=== PATIENT | male | born 1990 | race Hispanic/Latino ===

== ENCOUNTER 2017-10-29 19:26 | Inpatient (IN) | payer OTHER ==
[2017-10-29] MEDS ORDERED: ATIVAN ONE (20:05)
[2017-10-29] MEDS ORDERED: KEPPRA 1,000 MG/NS 0.75% 100ML 1,000 MG/100 ML BAG IV ONE (20:17)
[2017-10-29] MEDS ORDERED: NACL 0.9% 1000 ML 1,000 ML IV ONE (20:17)
--- NOTE | 2017-10-29 20:19 | Emergency Department Report ---
HPI - General Chief Complaint: Seizure Time Seen by Provider: 10/29/17 20:10 - HPI HPI: 27-year-old male presents to the emergency department through triage, from home, brought in by his significant other and his mother with complaint of having 3 seizures today. The third seizure was in the waiting room and was witnessed by ED staff. Allegedly the patient has a seizure history since he was 16 years old. He takes Keppra and allegedly is compliant with his medication. In between one of his seizures today, the patient supposedly admitted to his significant other that he had taken a pill of Suboxone yesterday for an unknown reason. They say that he has no history of abusing illicit drugs and he has not been drinking heavily. He goes to a clinic where he gets his Keppra but otherwise does not have good follow-up with a primary care physician. Recent travel or sick contacts at home. The patient is currently combative, postictal, and a poor historian. ED Past Medical Hx - Past Medical History Hx Seizures: Yes Hx Psychiatric Treatment: Yes (anxiety) Additional medical history: mitral valve prolapse, anxiety, heart murmur, depression, - Surgical History Past Surgical History?: No - Social History Smoking Status: Current Every Day Smoker Substance Use Type: None - Medications Home Medications: Home Medications Medication Instructions Recorded Confirmed Last Taken Type levETIRAcetam [Keppra TAB] 500 mg PO BID #60 tablet 09/07/13 Unknown Rx Naproxen [Naprosyn] 500 mg PO BID #30 tablet 11/28/13 Unknown Rx traMADol [Ultram 50 MG tab] 50 mg PO Q6HR PRN #20 tablet 11/28/13 Unknown Rx ED Review of Systems ROS: Stated complaint: SEIZURE Other details as noted in HPI Comment: Unobtainable due to pts medical conditions Physical Exam - Physical Exam Vital Signs: Vital Signs 10/29/17 19:42 Temperature 98.3 F Pulse Rate 107 H Respiratory 16 Rate Blood Pressure 123/60 O2 Sat by Pulse 96 Oximetry Physical Exam: GENERAL: The patient is well-developed well-nourished. HENT: Normocephalic. Atraumatic. Patient has moist mucous membranes. EYES: Extraocular motions are intact. Pupils equal reactive to light bilaterally. NECK: Supple. Trachea is midline. CHEST/LUNGS: Clear to auscultation. There is no respiratory distress noted. HEART/CARDIOVASCULAR: Regular. There is mild tachycardia. There is no murmur. ABDOMEN: Abdomen is soft, nontender. Patient has normal bowel sounds. There is no abdominal distention. SKIN: Skin is warm and dry. NEURO: Patient is awake but non-cooperative. He is most likely postictal and is combative and agitated. MUSCULOSKELETAL: There is no tenderness or deformity. There is no limitation range of motion. There is no evidence of acute injury. ED Course Vital Signs 10/29/17 19:42 Temperature 98.3 F Pulse Rate 107 H Respiratory 16 Rate Blood Pressure 123/60 O2 Sat by Pulse 96 Oximetry - Reevaluation(s) Reevaluation #1: The patient presented into the emergency department from the waiting room postictal, combative confused. He was given 2 mg of Ativan in order to treat the seizure as well as help with his combative behavior. This did not appear to help enough as the patient continued to be combative, took a swing at one of the ED staff, is cursing at everyone, including family. He was then given 10 mg of Geodon and physical restraints. Once the patient is more calm, we will remove the physical restraints. We will continue to monitor the patient. 10/29/17 21:14 ED Medical Decision Making - Lab Data Result diagrams: 10/29/17 20:31 10/29/17 20:31 - EKG Data -: EKG Interpreted by Ct EKG shows normal: sinus rhythm, axis, intervals, QRS complexes, ST-T waves Rate: tachycardia (102 bpm) - EKG Data When compared to previous EKG there are: previous EKG unavailable Interpretation: normal EKG (with very mild tachycardia at 102 bpm) - Radiology Data Radiology results: report reviewed PROCEDURE: CT HEAD/BRAIN WO CON TECHNIQUE: Computerized tomography of the head was performed without contrast material. HISTORY: Seizure COMPARISON: No prior studies are available for comparison. FINDINGS: Skull and scalp: Normal. Paranasal sinuses: Normal. Ventricles and subarachnoid spaces: Normal. Cerebrum: No evidence of hemorrhage, acute infarction or mass . Cerebellum and brainstem: No evidence of hemorrhage, acute infarction or mass. Vasculature: Normal. Comments: None. IMPRESSION: Normal Examination Transcribed By: CO Dictated By: DEANNE PERRIN MD Electronically Authenticated By: DEANNE PERRIN MD Signed Date/Time: 10/29/17 4879 - Medical Decision Making Patient had 2 seizures prior to arrival and then one witnessed in the waiting room. He presented into the main emergency department post ictal and combative. He was given 2 mg of Ativan to try and treat the seizure as well as help with some of the agitation without any relief. The patient began cursing at everyone and swinging at ED staff. At this point he was given some Geodon and required some physical restraints but eventually the patient began sleeping and resting comfortably. At this point the physical restraints were removed. EKG did not show any signs of ST elevation VA, ischemia or dysrhythmia. CT of the head did not show any bleed, shift, mass or any acute process. Labs are mostly unremarkable and did not show any etiology of his recurrent seizures. Since the patient has had some breakthrough seizures and allegedly he is compliant with his Keppra, he will be admitted to the hospital for further evaluation and treatment has been accepted for admission by the hospitalist, Dr. Estrada. - Differential Diagnosis Epilepsy, Substance abuse, Brain Bleed Critical Care Time: No Critical care attestation.: If time is entered above; I have spent that time in minutes in the direct care of this critically ill patient, excluding procedure time. ED Disposition Clinical Impression: Recurrent seizures Altered mental status Qualifiers: Altered mental status type: unspecified Qualified Code(s): R41.82 - Altered mental status, unspecified Disposition: OP ADMIT IP TO THIS HOSP Is pt being admited?: Yes Condition: Fair Referrals: LIBRA VALLECILLO MD [Primary Care Provider] - 3-5 Days Time of Disposition: 00:19
[2017-10-29] MEDS ORDERED: GEODON IM PRN (20:28)
[2017-10-29] MEDS ORDERED: GEODON IM ONE (20:29)
[2017-10-29 20:46] LABS: Basophils % (Auto) 0.4 % (0.0-1.8); Eosinophils # (Auto) 0.1 K/mm3 (0.0-0.4); Eosinophils % (Auto) 1.1 % (0.0-4.3); Hematocrit 50.9 % (35.5-45.6); Hemoglobin 17.6 gm/dl (11.8-15.2); Lymphocytes # (Auto) 1.5 K/mm3 (1.2-5.4); Lymphocytes % (Auto) 13.8 % (13.4-35.0); Mean Corpuscular HGB Conc 35 % (32-34); Mean Corpuscular Hemoglobin 31 pg (28-32); Mean Corpuscular Volume 89 fl (84-94); Monocytes # (Auto) 0.9 K/mm3 (0.0-0.8); Monocytes % (Auto) 7.9 % (0.0-7.3); Platelet Count 234 K/mm3 (140-440); Red Cell Distribution Width 12.9 % (13.2-15.2)
[2017-10-29 21:03] LABS: Alanine Aminotransferase 14 units/L (7-56); Albumin 4.6 g/dL (3.9-5)
[2017-10-29 21:40] LABS: BUN/Creatinine Ratio 12; Blood Urea Nitrogen 12 mg/dL (9-20); Calcium 8.7 mg/dL (8.4-10.2); Hemolysis Index 31
--- NOTE | 2017-10-29 22:11 | Cat Scan Report ---
FINAL REPORT PROCEDURE: CT HEAD/BRAIN WO CON TECHNIQUE: Computerized tomography of the head was performed without contrast material. HISTORY: Seizure COMPARISON: No prior studies are available for comparison. FINDINGS: Skull and scalp: Normal. Paranasal sinuses: Normal. Ventricles and subarachnoid spaces: Normal. Cerebrum: No evidence of hemorrhage, acute infarction or mass . Cerebellum and brainstem: No evidence of hemorrhage, acute infarction or mass. Vasculature: Normal. Comments: None. IMPRESSION: Normal Examination
[2017-10-29 22:55] LABS: Bilirubin,Urine NEG (Negative); Blood,Urine SM (Negative); Color,Urine Yellow (Yellow); Mucus,Urine FEW /HPF; Urobilinogen,Urine < 2.0 mg/dL (<2.0)
[2017-10-29 23:02] LABS: RBC,Urine < 1.0 /HPF (0.0-6.0)
[2017-10-29 23:05] LABS: Amphetamine Screen,Urine PRESUMPTIVE NEGATIVE; Cocaine Screen,Urine PRESUMPTIVE NEGATIVE; Methadone Screen,Urine PRESUMPTIVE NEGATIVE; Opiate Screen,Urine PRESUMPTIVE NEGATIVE
[2017-10-29 23:27] LABS: Benzodiazepines Screen,Urine PRESUMPTIVE POSITIVE; Cannabinoid Screen,Urine PRESUMPTIVE POSITIVE
[2017-10-29] MEDS ORDERED: ATIVAN IV PRN (23:40)
[2017-10-29] MEDS ORDERED: TYLENOL PO PRN (23:40)
[2017-10-29] MEDS ORDERED: ZOFRAN IV PRN (23:40)
--- NOTE | 2017-10-29 23:44 | History and Physical Report ---
History of Present Illness Date of examination: 10/29/17 History of present illness: 27-year-old man history of seizure, anxiety, depression, mitral valve prolapse and a seizure around 1 PM while he was at a restaurant. EMS was called and the patient declined to come to the hospital. Patient went home and had another seizure, generalized tonic-clonic. He came to the emergency room for evaluation and in the waiting area, he had another seizure. Family stated that he is compliant with medication. Review of systems unobtainable, patient is postictal PAST MEDICAL HISTORY: Seizure, anxiety, depression, mitral valve prolapse PAST SURGICAL HISTORY: None SOCIAL HISTORY: Social alcohol, tobacco, no drugs FAMILY HISTORY: Hypertension Medications and Allergies Allergies Allergy/AdvReac Type Severity Reaction Status Date / Time No Known Allergies Allergy Verified 10/29/17 19:42 Home Medications Medication Instructions Recorded Confirmed Last Taken Type levETIRAcetam [Keppra TAB] 500 mg PO BID #60 tablet 09/07/13 Unknown Rx Naproxen [Naprosyn] 500 mg PO BID #30 tablet 11/28/13 Unknown Rx traMADol [Ultram 50 MG tab] 50 mg PO Q6HR PRN #20 tablet 11/28/13 Unknown Rx Active Meds: Active Medications Ziprasidone (Geodon) 10 mg IM Q2H PRN PRN Reason: Agitation Exam - Physical Exam Narrative exam: Gen. appearance: Patient lying in bed, no apparent distress HEENT: Normocephalic, atraumatic, pupils equally round and reactive to light, unable to do extraocular movement , and no sclericterus,. No JVD or thyromegaly or nodule,neck supple, no carotid bruit ,mucous membranes moist, no exudate or erythema Heart: S1, S2, regular rate and rhythm Lungs: Clear to auscultation bilaterally, breathing comfortable Abdomen: Positive bowel sounds, nontender, nondistended, no organomegaly Extremity: No edema, cyanosis, clubbing Skin: No rash, nodules, warm, dry Neuro: Post ictal - Constitutional Vitals: Temp Pulse Resp BP Pulse Ox 98.3 F 107 H 16 123/60 96 10/29/17 19:42 10/29/17 19:42 10/29/17 19:42 10/29/17 19:42 10/29/17 19:42 Results - Labs CBC & Chem 7: 10/29/17 20:31 10/29/17 20:31 Labs: Abnormal lab results 10/29/17 10/29/17 10/29/17 Range/Units 20:31 20:31 20:31 RBC 5.70 H (3.65-5.03) M/mm3 Hgb 17.6 H (11.8-15.2) gm/dl Hct 50.9 H (35.5-45.6) % MCHC 35 H (32-34) % RDW 12.9 L (13.2-15.2) % Bartholomew % (Auto) 7.9 H (0.0-7.3) % Bartholomew # 0.9 H (0.0-0.8) K/mm3 Seg Neutrophils % 76.8 H (40.0-70.0) % Seg Neutrophils # 8.4 H (1.8-7.7) K/mm3 Sodium 136 L (137-145) mmol/L Chloride 94.4 L (98-107) mmol/L Carbon Dioxide 19 L (22-30) mmol/L Glucose 115 H (75-100) mg/dL Salicylates < 0.3 L (2.8-20.0) mg/dL Acetaminophen (10.0-30.0) ug/mL 10/29/17 Range/Units 20:31 RBC (3.65-5.03) M/mm3 Hgb (11.8-15.2) gm/dl Hct (35.5-45.6) % MCHC (32-34) % RDW (13.2-15.2) % Bartholomew % (Auto) (0.0-7.3) % Bartholomew # (0.0-0.8) K/mm3 Seg Neutrophils % (40.0-70.0) % Seg Neutrophils # (1.8-7.7) K/mm3 Sodium (137-145) mmol/L Chloride (98-107) mmol/L Carbon Dioxide (22-30) mmol/L Glucose (75-100) mg/dL Salicylates (2.8-20.0) mg/dL Acetaminophen < 5.0 L (10.0-30.0) ug/mL - Imaging and Cardiology EKG: image reviewed CT Scan - head: report reviewed Assessment and Plan Assessment Status epilepticus Depression Anxiety Mitral valve prolapse Plan Admit to medicine Status post loading dose of Keppra IV Ativan as needed, consult neurology DVT prophylaxis
[2017-10-30] MEDS ORDERED: NACL 0.9% 1000 ML 1,000 ML ONE (01:18)
[2017-10-30] MEDS: NACL 0.9% 1000 ML 1,000 ML IV SCH ×3 (01:24→17:30)
[2017-10-30 06:42] LABS: Basophils % (Auto) 0.4 % (0.0-1.8); Eosinophils # (Auto) 0.1 K/mm3 (0.0-0.4); Eosinophils % (Auto) 1.4 % (0.0-4.3); Hematocrit 45.7 % (35.5-45.6); Hemoglobin 15.5 gm/dl (11.8-15.2); Lymphocytes # (Auto) 2.4 K/mm3 (1.2-5.4); Mean Corpuscular HGB Conc 34 % (32-34); Mean Corpuscular Hemoglobin 30 pg (28-32); Mean Corpuscular Volume 90 fl (84-94); Monocytes % (Auto) 11.7 % (0.0-7.3); Platelet Count 188 K/mm3 (140-440); Red Blood Count 5.08 M/mm3 (3.65-5.03); Red Cell Distribution Width 12.8 % (13.2-15.2)
[2017-10-30 06:58] LABS: BUN/Creatinine Ratio 14; Blood Urea Nitrogen 11 mg/dL (9-20); Calcium 7.5 mg/dL (8.4-10.2); Hemolysis Index 13
--- NOTE | 2017-10-30 09:41 | Progress Note ---
Assessment and Plan Assessment and plan: 27-year-old man history of seizure since age 16, anxiety, depression, mitral valve prolapse and a seizure around 1 PM while he was at a restaurant. EMS was called and the patient declined to come to the hospital. Patient went home and had another seizure, generalized tonic-clonic. He came to the emergency room for evaluation and in the waiting area, he had another seizure and was witnessed by staff. Family stated that he is compliant with medication. Review of systems unobtainable on admission as patient was postictal. Per the ER Physician Documentation " In between one of his seizures today, the patient supposedly admitted to his significant other that he had taken a pill of Suboxone yesterday for an unknown reason. They say that he has no history of abusing illicit drugs and he has not been drinking heavily. He goes to a clinic where he gets his Keppra but otherwise does not have good follow-up with a primary care physician." Status epilepticus complex Partial Seizures Depression Anxiety SIRS POA Possible Substance abuse: THC, BENZO and per documentation possible Suboxone Mitral valve prolapse Plan Resume home medications await Neurology consult. Current medication reconciliation shows Keppra, Naproxyn and tramadol. The later known to lower seizure threshold, will see if patient was actually taking Status post loading dose of Keppra Extensive counselling greater than 15 mins about compliance. EEG Will discuss prior work up done outpatient and if any reason was found for the seizures No driving on discharge according to [place] laws DVT prophylaxis History Interval history: Patient seen and examined in no acute distress. He is more awake and oriented Hospitalist Physical - Physical exam Narrative exam: Gen. appearance: Patient lying in bed, no apparent distress HEENT: Normocephalic, atraumatic, pupils equally round and reactive to light, unable to do extraocular movement , and no sclericterus,. No JVD or thyromegaly or nodule,neck supple, no carotid bruit ,mucous membranes moist, no exudate or erythema Heart: S1, S2, regular rate and rhythm Lungs: Clear to auscultation bilaterally, breathing comfortable Abdomen: Positive bowel sounds, nontender, nondistended, no organomegaly Extremity: No edema, cyanosis, clubbing Skin: No rash, nodules, warm, dry. Multiple skin tattoe Neuro: alert awake, oriented x3. speech is normal, gait not tested - Constitutional Vitals: Temp Pulse Resp BP Pulse Ox 98.4 F 80 18 127/68 96 10/30/17 07:44 10/30/17 07:44 10/30/17 07:44 10/30/17 07:44 10/30/17 07:44 Results - Labs CBC & Chem 7: 10/30/17 06:12 10/30/17 06:12 Labs: Laboratory Last Values WBC 8.5 K/mm3 (4.5-11.0) 10/30/17 06:12 RBC 5.08 M/mm3 (3.65-5.03) H 10/30/17 06:12 Hgb 15.5 gm/dl (11.8-15.2) H 10/30/17 06:12 Hct 45.7 % (35.5-45.6) H 10/30/17 06:12 MCV 90 fl (84-94) 10/30/17 06:12 MCH 30 pg (28-32) 10/30/17 06:12 MCHC 34 % (32-34) 10/30/17 06:12 RDW 12.8 % (13.2-15.2) L 10/30/17 06:12 Plt Count 188 K/mm3 (140-440) 10/30/17 06:12 Lymph % (Auto) 28.0 % (13.4-35.0) 10/30/17 06:12 [place] % (Auto) 11.7 % (0.0-7.3) H 10/30/17 06:12 Eos % (Auto) 1.4 % (0.0-4.3) 10/30/17 06:12 Baso % (Auto) 0.4 % (0.0-1.8) 10/30/17 06:12 Lymph # 2.4 K/mm3 (1.2-5.4) 10/30/17 06:12 [place] # 1.0 K/mm3 (0.0-0.8) H 10/30/17 06:12 Eos # 0.1 K/mm3 (0.0-0.4) 10/30/17 06:12 Baso # 0.0 K/mm3 (0.0-0.1) 10/30/17 06:12 Seg Neutrophils % 58.5 % (40.0-70.0) 10/30/17 06:12 Seg Neutrophils # 5.0 K/mm3 (1.8-7.7) 10/30/17 06:12 Sodium 137 mmol/L (137-145) 10/30/17 06:12 Potassium 3.5 mmol/L (3.6-5.0) L 10/30/17 06:12 Chloride 100.7 mmol/L (98-107) 10/30/17 06:12 Carbon Dioxide 21 mmol/L (22-30) L 10/30/17 06:12 Anion Gap 19 mmol/L 10/30/17 06:12 BUN 11 mg/dL (9-20) 10/30/17 06:12 Creatinine 0.8 mg/dL (0.8-1.5) 10/30/17 06:12 Estimated GFR > 60 ml/min 10/30/17 06:12 BUN/Creatinine Ratio 14 % 10/30/17 06:12 Glucose 76 mg/dL (75-100) 10/30/17 06:12 Calcium 7.5 mg/dL (8.4-10.2) L 10/30/17 06:12 Total Bilirubin 0.80 mg/dL (0.1-1.2) 10/29/17 20:31 AST 35 units/L (5-40) 10/29/17 20:31 ALT 14 units/L (7-56) 10/29/17 20:31 Alkaline Phosphatase 73 units/L (35-129) 10/29/17 20:31 Total Protein 7.9 g/dL (6.3-8.2) 10/29/17 20:31 Albumin 4.6 g/dL (3.9-5) 10/29/17 20:31 Albumin/Globulin Ratio 1.4 % 10/29/17 20:31 Urine Color Yellow (Yellow) 10/29/17 22:32 Urine Turbidity Clear (Clear) 10/29/17 22:32 Urine pH 6.0 (5.0-7.0) 10/29/17 22:32 Ur Specific [place] 1.018 (1.003-1.030) 10/29/17 22:32 Urine Protein 30 mg/dl mg/dL (Negative) 10/29/17 22:32 Urine Glucose (UA) Neg mg/dL (Negative) 10/29/17 22:32 Urine Ketones 20 mg/dL (Negative) 10/29/17 22:32 Urine Blood Sm (Negative) 10/29/17 22:32 Urine Nitrite Neg (Negative) 10/29/17 22:32 Urine Bilirubin Neg (Negative) 10/29/17 22:32 Urine Urobilinogen < 2.0 mg/dL (<2.0) 10/29/17 22:32 Ur Leukocyte Esterase Neg (Negative) 10/29/17 22:32 Urine WBC (Auto) 2.0 /HPF (0.0-6.0) 10/29/17 22:32 Urine RBC (Auto) < 1.0 /HPF (0.0-6.0) 10/29/17 22:32 Urine Mucus Few /HPF 10/29/17 22:32 Salicylates < 0.3 mg/dL (2.8-20.0) L 10/29/17 20:31 Urine Opiates Screen Presumptive negative 10/29/17 22:32 Urine Methadone Screen Presumptive negative 10/29/17 22:32 Acetaminophen < 5.0 ug/mL (10.0-30.0) L 10/29/17 20:31 Ur Barbiturates Screen Presumptive negative 10/29/17 22:32 Ur Phencyclidine Scrn Presumptive negative 10/29/17 22:32 Ur Amphetamines Screen Presumptive negative 10/29/17 22:32 U Benzodiazepines Scrn Presumptive positive 10/29/17 22:32 Urine Cocaine Screen Presumptive negative 10/29/17 22:32 U Marijuana (THC) Screen Presumptive positive 10/29/17 22:32 Drugs of Abuse Note Disclamer 10/29/17 22:32 Plasma/Serum Alcohol < 0.01 % (0-0.07) 10/29/17 20:31 - Imaging and Cardiology CT Scan - head: image reviewed (cerebella stroke)
[2017-10-30] MEDS ORDERED: LOVENOX SUB-Q SCH (10:00)
[2017-10-30] MEDS ORDERED: KEPPRA PO SCH (10:00)
[2017-10-30] MEDS: LOVENOX SUB-Q SCH (10:27)
[2017-10-30] MEDS ORDERED: K-DUR PO ONE (10:30)
[2017-10-30] MEDS ORDERED: KEPPRA 1,000 MG in D5W 100 ML IV SCH (11:00)
[2017-10-30] MEDS ORDERED: KEPPRA 1,000 MG/NS 0.75% 100ML 1,000 MG/100 ML BAG IV ONE (11:00)
[2017-10-30] MEDS: PEPCID PO SCH ×2 (12:59→22:26)
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
[2017-10-30] MEDS: KEPPRA PO SCH (22:26)
[2017-10-31] MEDS: NACL 0.9% 1000 ML 1,000 ML IV SCH (00:31)
[2017-10-31 06:32] LABS: BUN/Creatinine Ratio 8; Blood Urea Nitrogen 6 mg/dL (9-20); Calcium 7.8 mg/dL (8.4-10.2); Hemolysis Index 14
[2017-10-31 08:37] VITALS: BP 118/82
[2017-10-31] MEDS: KEPPRA PO SCH (09:28)
[2017-10-31] MEDS: LOVENOX SUB-Q SCH (09:28)
[2017-10-31] MEDS: PEPCID PO SCH (09:29)
--- NOTE | 2017-10-31 10:46 | Discharge Summary ---
Providers - Providers Date of Admission: 10/29/17 23:40 Attending physician: ANIA LOPEZ MD 10/29/17 23:40 Consult to Physician [CONS] Routine Consulting Provider: ANTONIETA ERVIN Reason For Exam: Place consult to:: dr. ervin Notified:: felipe peters Phone number called:: [phone] Was contact made?: No Time called:: 08:33 Comment:: [facility] [place] physician: LIBRA VALLECILLO Hospitalization Condition: Stable Hospital course: 27-year-old man history of seizure since age 16, anxiety, depression, mitral valve prolapse and a seizure around 1 PM while he was at a restaurant. EMS was called and the patient declined to come to the hospital. Patient went home and had another seizure, generalized tonic-clonic. He came to the emergency room for evaluation and in the waiting area, he had another seizure and was witnessed by staff. Family stated that he is compliant with medication. Review of systems unobtainable on admission as patient was postictal. Per the ER Physician Documentation " In between one of his seizures today, the patient supposedly admitted to his significant other that he had taken a pill of Suboxone yesterday for an unknown reason. They say that he has no history of abusing illicit drugs and he has not been drinking heavily. He goes to a clinic where he gets his Keppra but otherwise does not have good follow-up with a primary care physician." Status epilepticus complex Partial Seizures Depression Anxiety SIRS POA Possible Substance abuse: THC, BENZO and per documentation possible Suboxone Mitral valve prolapse Plan Resume home medications await Neurology consult. Current medication reconciliation shows Keppra, Naproxyn and tramadol. The later known to lower seizure threshold, will see if patient was actually taking Status post loading dose of Keppra Extensive counselling greater than 15 mins about compliance. EEG Will discuss prior work up done outpatient and if any reason was found for the seizures No driving on discharge according to [place] laws DVT prophylaxis Disposition: DC- TO HOME OR SELFCARE Exam - Physical Exam Narrative exam: Gen. appearance: Patient lying in bed, no apparent distress HEENT: Normocephalic, atraumatic, pupils equally round and reactive to light, unable to do extraocular movement , and no sclericterus,. No JVD or thyromegaly or nodule,neck supple, no carotid bruit ,mucous membranes moist, no exudate or erythema Heart: S1, S2, regular rate and rhythm Lungs: Clear to auscultation bilaterally, breathing comfortable Abdomen: Positive bowel sounds, nontender, nondistended, no organomegaly Extremity: No edema, cyanosis, clubbing Skin: No rash, nodules, warm, dry. Multiple skin tattoe Neuro: alert awake, oriented x3. speech is normal, gait not tested - Constitutional Vitals: Temp Pulse Resp BP Pulse Ox 98.4 F 57 L 20 118/82 97 10/31/17 08:01 10/31/17 08:01 10/31/17 08:01 10/31/17 08:01 10/31/17 08:01 Plan Activity: no driving until cleared by PCP, fall precautions Diet: regular Special Instructions: smoking cessation Follow up with: LIBRA VALLECILLO MD [Primary Care Provider] - 3-5 Days [facility] [place] [Provider Group] - 7 Days Prescriptions: levETIRAcetam [Keppra TAB] 1,000 mg PO BID #60 tablet
== END 2017-10-31 15:20 | disposition home or self-care (01) | DRG 101 ==
LOC: ED 19:26 → 3A 23:40
PROVIDERS: ADMIT Internal Medicine; ATTEND Internal Medicine
DX: G40.201 Localization-related (focal) (partial) symptomatic epilepsy and epileptic syndromes with complex partial seizures, not intractable, with status epilepticus (principal); R65.10 Systemic inflammatory response syndrome (SIRS) of non-infectious origin without acute organ dysfunction; F41.9 Anxiety disorder, unspecified; F32.9 Major depressive disorder, single episode, unspecified; I34.1 Nonrheumatic mitral (valve) prolapse; F17.200 Nicotine dependence, unspecified, uncomplicated; Z82.49 Family history of ischemic heart disease and other diseases of the circulatory system
CPT/HCPCS: 36415; 70450; 80048; 80053; 80307; 80320; 81001; 82330; 85025; 93005; 93010; 95819; 96361; 96372; 96374; 99285; 99406; G0480; J1650; J1953; J2060; J3486; J7030